=== PATIENT | male | born 1945 ===

== ENCOUNTER 2018-09-17 08:48 | Day surgery (SDC) | payer MEDICARE ==
[2018-09-06 12:56] VITALS: BMI 28.7
[2018-09-17] MEDS ORDERED: Acetaminophen-Codeine 300/30 mg Tab PO PRN (09:18)
[2018-09-17] MEDS ORDERED: Dextrose 5%/0.45% NS 1,000 ML IV SCH (09:30)
[2018-09-17] MEDS ORDERED: ceFAZolin IV 1 gm in Dextrose 2 GM/100 ML BAG IVPB ONE (11:22)
[2018-09-17] MEDS ORDERED: Midazolam 2 MG/2 ML VIAL ONE (11:25)
[2018-09-17] MEDS ORDERED: Succinylcholine Chloride 20 mg/ml Syr (5 ml) IV ONE (11:25)
[2018-09-17] MEDS ORDERED: Rocuronium 10 mg/ml (5 ml) ONE (11:25)
[2018-09-17] MEDS ORDERED: Propofol 10 mg/ml Inj (20 ML) ONE (11:27)
[2018-09-17] MEDS ORDERED: ePHEDrine 50 mg/ml Inj ONE (11:43)
[2018-09-17] MEDS ORDERED: Neostigmine Methylsulfate 3mg/3ml Syringe IV ONE (11:50)
[2018-09-17] MEDS ORDERED: Esmolol 100 mg/10ml Inj IV ONE (11:52)
[2018-09-17] MEDS ORDERED: HYDROmorphone 0.5 mg/0.5 ml ISec IVP PRN (12:16)
[2018-09-17] MEDS ORDERED: Metoprolol 1 mg/ml Inj IVP ONE (12:30)
--- NOTE | 2018-09-17 12:57 | OP ---
PROCEDURE DATE: 09/17/2018 PREOPERATIVE DIAGNOSIS: Right vocal cord mass. POSTOPERATIVE DIAGNOSIS: Right vocal cord mass. PROCEDURE: Microdirect laryngoscopy with removal of right vocal cord mass. SIGNIFICANT FINDINGS: Right vocal cord mass. DESCRIPTION OF PROCEDURE: The patient was brought into the room, placed in supine position. Anesthesia initiated through an ET tube. Shoulder roll was placed, neck extended. The patient was draped in usual manner. Tooth guard was placed over the upper teeth in order to protect them and removed at the end of the case. Direct laryngoscope was inserted to oral cavity, passed to oropharynx and hypopharynx. The base of tongue, vallecula, epiglottis, AE folds, false cords, true cords, arytenoids, piriform sinuses, pharyngeal bunch were brought to view. Posterior right vocal cord mass was noted. Direct laryngoscope was used to view the right vocal cord mass and while that was being done, it was suspended on the [employer] blue[employer]ing machine operator usual manner. Microscope was brought into position to view the right vocal cord mass. Forceps were used to grab the mass and pull it medially. Scissors were used to dissect the mass off the vocal cord leaving as much mucosa as possible. Bleeding was controlled using cold water irrigation. The direct laryngoscope was taken off suspension and removed. Tooth guard was removed. The microscope was taken out of position. The patient was taken off anesthesia and taken to recovery room in stable manner. Vinayak Mackey MD
[2018-09-17] MEDS ORDERED: Lactated Ringer's 1,000 ML IV ONE (13:00)
[2018-09-17 13:22] VITALS: BP 129/76; PULSE 89; O2SAT 96
[2018-09-17 15:01] VITALS: RESP 18; TEMP 97.7
== END 2018-09-17 14:00 | disposition home or self-care (01) ==
LOC: C.SDS 08:48
PROVIDERS: ATTEND Otolaryngology
DX: J38.1 Polyp of vocal cord and larynx (principal); I25.10 Atherosclerotic heart disease of native coronary artery without angina pectoris; E11.9 Type 2 diabetes mellitus without complications; I10 Essential (primary) hypertension; Z86.73 Personal history of transient ischemic attack (TIA), and cerebral infarction without residual deficits
CPT/HCPCS: 31541; 82948; 88305; J0690; J2001; J2250; J2405; J2704; J2710; J3010; J7120